=== PATIENT | female | born 1970 | race Caucasian/White ===

== ENCOUNTER 2018-05-26 00:34 | Emergency (ER) | payer OTHER ==
[~2018-05-26] VITALS: Ht 154.9 cm; Wt 81.6 kg
[2018-05-26 00:44] VITALS: Ht 154.9 cm; Wt 81.6 kg
[2018-05-26 01:21] LABS: BASOPHIL % 0.3 % (0-2); PLATELET COUNT 251 x10^3mcL (130-400); RED CELL DISTRIBUTION WIDTH 12.3 % (11.5-14.5)
[2018-05-26 01:30] LABS: CALCIUM 9.3 mg/dL (8.5-10.1); CARBON DIOXIDE 28.9 mmol/L (21-32); CHLORIDE SERUM 96 mmol/L (98-107); CREATININE SERUM 0.8 mg/dL (0.6-1.0); GFR1 > 60 mL/min; GLUCOSE SERUM 375 mg/dL (74-106); POTASSIUM SERUM 3.7 mmol/L (3.5-5.1); SODIUM SERUM 134 mmol/L (136-145)
[2018-05-26 01:34] LABS: ALBUMIN 3.6 g/dL (3.4-5.0); ALKALINE PHOSPHATASE 140 U/L (46-116); ALT/SGPT 52 U/L (14-59); AST/SGOT 28 U/L (15-37); BILIRUBIN TOTAL 0.42 mg/dL (0.20-1.00); LIPASE 181 IU/L (73-393); TOTAL PROTEIN, SERUM 7.1 g/dL (6.4-8.2)
[2018-05-26 01:39] LABS: AMYLASE 23 U/L (25-115)
[2018-05-26 02:58] VITALS: BP 151/87
== END 2018-05-26 03:31 | disposition home or self-care (01) ==
LOC: ED 00:34 → EDBD 00:34 → ED 03:31
PROVIDERS: Emergency Medicine
DX: K59.00 Constipation, unspecified (principal); I10 Essential (primary) hypertension; E11.9 Type 2 diabetes mellitus without complications; Z90.710 Acquired absence of both cervix and uterus; Z90.49 Acquired absence of other specified parts of digestive tract
CPT/HCPCS: J2270; J2550; J7030; Q9967

== ENCOUNTER 2018-09-15 21:24 | Emergency (ER) | payer OTHER ==
[~2018-09-15] VITALS: Ht 154.9 cm; Wt 81.6 kg
[2018-09-15 21:36] VITALS: Ht 154.9 cm; Wt 81.6 kg
[2018-09-15 23:11] LABS: microscopic required? NO
[2018-09-15 23:19] LABS: BASOPHIL % 0.5 % (0-2); PLATELET COUNT 255 x10^3mcL (130-400); RED CELL DISTRIBUTION WIDTH 12.5 % (11.5-14.5)
[2018-09-15 23:20] LABS: UA SPECIFIC GRAVITY 1.015 (1.005-1.035); urine erythrocyte NEGATIVE (NEGATIVE)
[2018-09-15 23:29] LABS: CARBON DIOXIDE 29.8 mmol/L (21-32); CHLORIDE SERUM 97 mmol/L (98-107); CREATININE SERUM 0.7 mg/dL (0.6-1.0); GFR1 > 60 mL/min; GLUCOSE SERUM 408 mg/dL (74-106); POTASSIUM SERUM 3.8 mmol/L (3.5-5.1); SODIUM SERUM 130 mmol/L (136-145)
[2018-09-15 23:34] LABS: ALBUMIN 3.7 g/dL (3.4-5.0); ALKALINE PHOSPHATASE 147 U/L (46-116); ALT/SGPT 48 U/L (14-59); AST/SGOT 17 U/L (15-37); BILIRUBIN TOTAL 0.4 mg/dL (0.20-1.00); LIPASE 184 IU/L (73-393); TOTAL PROTEIN, SERUM 7.3 g/dL (6.4-8.2)
[2018-09-16 01:34] VITALS: BP 147/92
== END 2018-09-16 01:43 | disposition home or self-care (01) ==
LOC: ED 21:24
PROVIDERS: Emergency Medicine
DX: K57.92 Diverticulitis of intestine, part unspecified, without perforation or abscess without bleeding (principal); N83.201 Unspecified ovarian cyst, right side; E11.65 Type 2 diabetes mellitus with hyperglycemia; M65.251 Calcific tendinitis, right thigh; I10 Essential (primary) hypertension; F32.9 Major depressive disorder, single episode, unspecified; Z90.711 Acquired absence of uterus with remaining cervical stump; Z90.49 Acquired absence of other specified parts of digestive tract; Z87.42 Personal history of other diseases of the female genital tract
CPT/HCPCS: 82962; J1815; J1885; J2405; J7030; Q0092